=== PATIENT | male | born 1965 | race Caucasian/White ===

== ENCOUNTER 2024-04-25 18:36 | Emergency (ER) | payer OTHER ==
[~2024-04-25] VITALS: Ht 172.7 cm; Wt 90.8 kg
[2024-04-25 20:30] VITALS: BP 144/83; PULSE 74; RESP 20; TEMP 98.6; O2SAT 97
[2024-04-25] MEDS: KETOROLAC TROMETH 60MG/2ML VIAL IM ONE (21:55)
[2024-04-25] MEDS ORDERED: DOXY100C4 PO (22:34)
== END 2024-04-25 23:18 | disposition home or self-care (01) ==
LOC: ER 18:36
DX: S60.562D Insect bite (nonvenomous) of left hand, subsequent encounter (principal); Z88.1 Allergy status to other antibiotic agents; W57.XXXD Bitten or stung by nonvenomous insect and other nonvenomous arthropods, subsequent encounter
CPT/HCPCS: 73130; 96372; 99283; J1885

== ENCOUNTER 2024-04-27 10:17 | Inpatient (IN) | payer OTHER ==
[~2024-04-27] VITALS: Ht 172.7 cm; Wt 91.0 kg
[~2024-04-27 10:17] MED LIST: BACDST PO; DOXY100C4 PO; DOXY1CAP57 PO; FLUO0.054 TOP; LOSA100T33 PO; MUPI2OIN2 TOP; TACR0.1O7 TOP
[2024-04-27 11:50] LABS: Basophils # (auto) 0 10 ^3/uL (0-0.2); Basophils % (auto) 0.4 % (0.0-2.0); Eosinophils # (auto) 0.1 10 ^3/uL (0-0.8); Hematocrit 43.1 % (41.0-53.0); Hemoglobin 14.9 g/dL (13.5-17.5); Lymphocytes # (auto) 1.3 10 ^3/uL (0.4-5.4); Lymphocytes % (auto) 16.4 % (10.0-50.0); Mean Corpuscular Hemoglobin 32.3 pg (28.0-32.0); Mean Corpuscular Hgb Conc. 34.6 g/dL (32.0-36.0); Mean Corpuscular Volume 93.4 fL (80.0-100.0); Monocytes # (auto) 0.7 10 ^3/uL (0-1.3); Monocytes % (auto) 8.3 % (0.0-12.0); Neutrophils # (auto) 5.9 10 ^3/uL (1.6-8.6); Neutrophils % (auto) 73.9 % (37.0-80.0); Nucleated Red Blood Cells % 0.1 %; Platelet Count (auto) 205 10^3/uL (140-450); Red Blood Cells 4.61 10^6/uL (4.5-5.90); Red Cell Distribution Width 13.6 % (11.8-14.3)
[2024-04-27 12:06] LABS: Alanine Aminotransferase 45 U/L (7-40); Albumin 4.6 g/dL (3.2-4.8); Alkaline Phosphatase 90 U/L (46-116); Anion Gap 6 (5-15); Aspartate Aminotransferase 24 U/L (13-40); BUN/Creatinine Ratio 14.6 (10.0-20.0); Bilirubin, Total 0.7 mg/dL (0.2-1.0); Blood Urea Nitrogen 14 mg/dL (9-23); Carbon Dioxide 25 mmol/L (20-30); Chloride 107 mmol/L (98-107); Glucose 93 mg/dL (74-106); Potassium 4.4 mmol/L (3.5-5.1); Sodium 138 mmol/L (136-145); Total Protein 7.2 g/dL (5.7-8.2)
[2024-04-27 12:15] LABS: CRP High Sensitivity 2.92 mg/dL (<1.0)
[2024-04-27 12:27] LABS: Erythrocyte Sedimentation Rate 14 mm/hr (0-20)
[2024-04-27] MEDS: PIPERACILLIN-TAZOB 3.375GM 100 ML IV ONE (13:57)
[2024-04-27] MEDS ORDERED: DOCUSATE SOD 100 MG CAP PO PRN (14:45)
[2024-04-27] MEDS ORDERED: NITROGLYCERIN 0.4 MG SL TAB SL PRN (14:45)
[2024-04-27] MEDS ORDERED: ONDANSETRON HCL 4 MG/2 ML VIAL IV PRN (14:45)
[2024-04-27] MEDS ORDERED: MORPHINE SULFATE INJ 2 MG/ml SYRG IV PRN (14:45)
[2024-04-27] MEDS ORDERED: VANCOMYCIN PER PHARMACY 0 MG IV SCH (14:45)
[2024-04-27] MEDS: TETANUS-DIPTH-ACEL PERTUSSIS 0.5ML SYR Tdap IM ONE (16:09)
[2024-04-27] MEDS: SODIUM CHLORIDE 0.9% 1,000 ML IV SCH (16:10)
[2024-04-27] MEDS: VANCOMYCIN 1GM/200ML 200 ML IV SCH (16:23)
[2024-04-27 18:43] VITALS: BP 143/74; PULSE 70; RESP 20; TEMP 97.9; O2SAT 96
[2024-04-27] MEDS ORDERED: AMLO1TAB23 PO (19:03)
[2024-04-27 20:00] VITALS: RESP 16
[2024-04-27] MEDS: ACETAMINOPHEN 325 MG TAB PO PRN (20:05)
[2024-04-27] MEDS: VANCOMYCIN 1GM/200ML 200 ML IV ONE (20:41)
[2024-04-27 21:00] VITALS: BP 130/64; PULSE 67; RESP 20; TEMP 97.9; O2SAT 95
[2024-04-28] VITALS (9 sets, daily range): BP systolic 117–136; BP diastolic 59–83; PULSE 52–72; RESP 14–20; TEMP 97.6–98.3; O2SAT 91–98
[2024-04-28] MEDS: VANCOMYCIN 1.25GM/250ML 250 ML IV SCH (06:26)
[2024-04-28 06:42] LABS: Alanine Aminotransferase 39 U/L (7-40); Albumin 4.1 g/dL (3.2-4.8); Alkaline Phosphatase 82 U/L (46-116); Anion Gap 5 (5-15); Aspartate Aminotransferase 22 U/L (13-40); BUN/Creatinine Ratio 15.4 (10.0-20.0); Bilirubin, Total 0.7 mg/dL (0.2-1.0); Blood Urea Nitrogen 12 mg/dL (9-23); Calcium 9.3 mg/dL (8.7-10.4); Carbon Dioxide 26 mmol/L (20-30); Chloride 108 mmol/L (98-107); Glucose 111 mg/dL (74-106); Potassium 4.2 mmol/L (3.5-5.1); Sodium 139 mmol/L (136-145); Total Protein 6.4 g/dL (5.7-8.2)
[2024-04-28 06:52] LABS: Basophils # (auto) 0 10 ^3/uL (0-0.2); Basophils % (auto) 0.4 % (0.0-2.0); Eosinophils # (auto) 0.1 10 ^3/uL (0-0.8); Hematocrit 41.1 % (41.0-53.0); Hemoglobin 13.9 g/dL (13.5-17.5); Lymphocytes # (auto) 1.2 10 ^3/uL (0.4-5.4); Lymphocytes % (auto) 15.9 % (10.0-50.0); Mean Corpuscular Hemoglobin 31.5 pg (28.0-32.0); Mean Corpuscular Hgb Conc. 33.8 g/dL (32.0-36.0); Mean Corpuscular Volume 93.1 fL (80.0-100.0); Monocytes # (auto) 0.7 10 ^3/uL (0-1.3); Monocytes % (auto) 9.3 % (0.0-12.0); Neutrophils # (auto) 5.7 10 ^3/uL (1.6-8.6); Neutrophils % (auto) 73.4 % (37.0-80.0); Platelet Count (auto) 188 10^3/uL (140-450); Red Blood Cells 4.42 10^6/uL (4.5-5.90); Red Cell Distribution Width 13.5 % (11.8-14.3); White Blood Cell 7.8 10^3/uL (4.4-10.8)
[2024-04-28] MEDS: PIPERACILLIN-TAZOB 3.375GM 100 ML IV SCH (10:39)
[2024-04-28] MEDS: SODIUM CHLORIDE 0.9% 1,000 ML IV SCH (11:30)
[2024-04-28] MEDS ORDERED: ONDANSETRON HCL 4 MG/2 ML VIAL ONE (15:54)
[2024-04-28] MEDS ORDERED: PROPOFOL 10 MG/ML 20 ML IV ONE ×2 (15:54→16:06)
[2024-04-28] MEDS ORDERED: LIDOCAINE 1% INJ PF 5ML AMP ONE (15:54)
[2024-04-28] MEDS ORDERED: DexAMETHasone SOD PHOS 10MG/1ML VIAL INJ ONE (15:54)
[2024-04-28] MEDS ORDERED: KETOROLAC TROMETH 30 MG/ML 1ML VIAL ONE (15:54)
[2024-04-28] MEDS ORDERED: GLYCOPYRROLATE 0.2 MG/ML 1ML VIAL ONE (15:54)
[2024-04-28] MEDS ORDERED: KETAMINE 50mg/ML 10ml Vial 10 ML ONE (15:55)
[2024-04-28] MEDS ORDERED: KETAMINE 50mg/ML 1ml syringe ONE (15:55)
[2024-04-28] MEDS ORDERED: LIDOCAINE 1% HCL (LOCAL ANESTH.) INJ 20ML MDV ONE (16:01)
[2024-04-28] MEDS: BUPIVACAINE 0.25% INJ 50ML VIAL ONE (16:07)
[2024-04-28] MEDS: VANCOMYCIN HCL 1000 MG VL ONE (16:20)
[2024-04-28] MEDS ORDERED: ONDANSETRON HCL 4 MG/2 ML VIAL IV PRN (16:45)
[2024-04-28] MEDS ORDERED: NALOXONE HCL 0.4 MG/ML VIAL IV PRN (16:45)
[2024-04-28] MEDS ORDERED: HYDROmorphone HCL 2 MG/ML VL/or syr IV PRN (16:45)
[2024-04-28] MEDS ORDERED: hydrALAZINE HCL 20 MG/ML VL IV PRN (16:45)
[2024-04-28] MEDS ORDERED: FLUMAZENIL 0.1 MG/ML INJ 10ML MDV IV PRN (16:45)
[2024-04-28] MEDS ORDERED: ePHEDrine SULFATE 50 MG/ML AMP IV PRN (16:45)
[2024-04-28] MEDS ORDERED: fentaNYL CITRATE 100 MCG/2 ML VL ONE (16:50)
[2024-04-28] MEDS ORDERED: oxyCODONE ER 10 MG TAB PO ONE (16:50)
[2024-04-28] MEDS: fentaNYL CITRATE 100 MCG/2 ML VL IV PRN (16:51)
[2024-04-28] MEDS: oxyCODONE HCL 5MG TAB PO PRN (16:58)
[2024-04-29] VITALS (7 sets, daily range): BP systolic 110–144; BP diastolic 61–80; PULSE 64–85; RESP 16–21; TEMP 97.4–98.9; O2SAT 94–100
[2024-04-29 06:02] LABS: Anion Gap 6 (5-15); Calcium 9.7 mg/dL (8.7-10.4); Carbon Dioxide 25 mmol/L (20-30); Chloride 107 mmol/L (98-107); Potassium 4.5 mmol/L (3.5-5.1); Sodium 138 mmol/L (136-145)
[2024-04-29 06:08] LABS: BUN/Creatinine Ratio 19.3 (10.0-20.0); Blood Urea Nitrogen 16 mg/dL (9-23); Glucose 141 mg/dL (74-106)
[2024-04-29 06:11] LABS: Basophils # (auto) 0 10 ^3/uL (0-0.2); Basophils % (auto) 0.1 % (0.0-2.0); Eosinophils # (auto) 0 10 ^3/uL (0-0.8); Hematocrit 42.3 % (41.0-53.0); Hemoglobin 14.7 g/dL (13.5-17.5); Lymphocytes # (auto) 0.6 10 ^3/uL (0.4-5.4); Lymphocytes % (auto) 4.4 % (10.0-50.0); Mean Corpuscular Hemoglobin 32.4 pg (28.0-32.0); Mean Corpuscular Hgb Conc. 34.8 g/dL (32.0-36.0); Mean Corpuscular Volume 93.1 fL (80.0-100.0); Monocytes # (auto) 0.4 10 ^3/uL (0-1.3); Monocytes % (auto) 3.2 % (0.0-12.0); Neutrophils # (auto) 12.2 10 ^3/uL (1.6-8.6); Neutrophils % (auto) 92.3 % (37.0-80.0); Platelet Count (auto) 215 10^3/uL (140-450); Red Blood Cells 4.54 10^6/uL (4.5-5.90); Red Cell Distribution Width 12.9 % (11.8-14.3); White Blood Cell 13.2 10^3/uL (4.4-10.8)
[2024-04-29 10:03] LABS: Hepatitis B Surface Antigen Negative (Negative)
[2024-04-29 10:24] LABS: Hepatitis C Antibody Negative (Negative)
[2024-04-29] MEDS: levoFLOXacin 500MG 100 ML IV SCH (14:29)
[2024-04-29] MEDS: diphenhdrAMINE HCL 50 MG/1 ML VL IM ONE (16:30)
[2024-04-29] MEDS ORDERED: PIPERACILLIN-TAZOB 3.375GM 100 ML IV SCH (18:00)
[2024-04-29] MEDS: PIPERACILLIN-TAZOB 3.375GM 100 ML IV SCH (20:55)
[2024-04-30] VITALS (8 sets, daily range): BP systolic 120–154; BP diastolic 69–84; PULSE 53–86; RESP 16–21; TEMP 97.4–98.2; O2SAT 92–98
[2024-04-30] MEDS: PIPERACILLIN-TAZOB 3.375GM 100 ML IV SCH (03:13)
[2024-04-30 11:15] LABS: Basophils # (auto) 0 10 ^3/uL (0-0.2); Basophils % (auto) 0.3 % (0.0-2.0); Eosinophils # (auto) 0.1 10 ^3/uL (0-0.8); Eosinophils % (auto) 0.9 % (0.0-7.0); Hematocrit 39.9 % (41.0-53.0); Hemoglobin 13.9 g/dL (13.5-17.5); Lymphocytes # (auto) 1.9 10 ^3/uL (0.4-5.4); Lymphocytes % (auto) 22.2 % (10.0-50.0); Mean Corpuscular Hemoglobin 32.6 pg (28.0-32.0); Mean Corpuscular Hgb Conc. 34.9 g/dL (32.0-36.0); Mean Corpuscular Volume 93.4 fL (80.0-100.0); Monocytes # (auto) 0.7 10 ^3/uL (0-1.3); Monocytes % (auto) 8.4 % (0.0-12.0); Neutrophils # (auto) 5.7 10 ^3/uL (1.6-8.6); Neutrophils % (auto) 68.2 % (37.0-80.0); Nucleated Red Blood Cells % 0.1 %; Platelet Count (auto) 188 10^3/uL (140-450); Red Blood Cells 4.27 10^6/uL (4.5-5.90); Red Cell Distribution Width 13.1 % (11.8-14.3); White Blood Cell 8.4 10^3/uL (4.4-10.8)
[2024-04-30 11:56] LABS: Erythrocyte Sedimentation Rate 16 mm/hr (0-20)
[2024-04-30 14:09] LABS: Urine Bacteria None Seen /hpf (None Seen)
[2024-04-30 14:28] LABS: Urine Blood Negative /uL (Negative); Urine Clarity Clear (Clear); Urine Color Light-Yellow (Yellow); Urine Protein, UAD Negative (Negative); Urine Specific Gravity 1.024 (1.001-1.035); Urine Urobilinogen Normal (Negative); Urine WBC <1 /hpf (0 - 3)
[2024-04-30 14:43] LABS: Amphetamine Screen, Urine Neg (NEGATIVE)
[2024-04-30 14:44] LABS: Barbiturate Scree,Urine Neg (NEGATIVE); Benzodiazephine Screen, Urine Neg (NEGATIVE); Cannabinoid Screen, Urine Neg (NEGATIVE); Cocaine Screen, Urine Neg (NEGATIVE); Opiate Scree,Urine Neg (NEGATIVE); Phencyclidine Screen, Urine Neg (NEGATIVE)
[2024-04-30] MEDS: AMPICILLIN & SULBACTAM SODIUM 3 GM in SODIUM CHL 0.9% 100 ML IV SCH (16:24)
[2024-04-30] MEDS ORDERED: PIPERACILLIN-TAZOB 3.375GM 100 ML IV SCH (17:00)
[2024-04-30] MEDS ORDERED: VANCOMYCIN PER PHARMACY 0 MG IV SCH (20:45)
[2024-04-30] MEDS: VANCOMYCIN 1.25GM/250ML 250 ML IV SCH (22:03)
[2024-05-01] MEDS: AMPICILLIN & SULBACTAM SODIUM 3 GM in SODIUM CHL 0.9% 100 ML IV SCH (01:58)
[2024-05-01 05:00] VITALS: BP 119/77; PULSE 81; RESP 16; TEMP 98.1; O2SAT 95
[2024-05-01 06:22] LABS: Calcium 9.1 mg/dL (8.7-10.4)
[2024-05-01 06:27] LABS: Albumin 3.8 g/dL (3.2-4.8); BUN/Creatinine Ratio 17.9 (10.0-20.0)
[2024-05-01 06:29] LABS: Phosphorus 3.8 mg/dL (2.4-5.1)
[2024-05-01 09:00] VITALS: BP 139/75; PULSE 60; RESP 20; TEMP 97.8; O2SAT 96
[2024-05-01] MEDS: amLODIPine BESYLATE 5 MG TAB PO ONE (10:40)
[2024-05-01 13:00] VITALS: BP 152/76; PULSE 56; RESP 20; TEMP 97.5; O2SAT 96
[2024-05-01] MEDS: AMOXICILLIN/CLAVUL 875 MG TAB PO ONE (14:37)
[2024-05-01 15:40] VITALS: BP 139/75; TEMP 36.4
[2024-05-01] MEDS ORDERED: DICL500C76 PO (16:11)
[2024-05-01] MEDS ORDERED: AMOXICILLIN/CLAVUL 875 MG TAB PO SCH (22:00)
[2024-05-02] MEDS ORDERED: amLODIPine BESYLATE 5 MG TAB PO SCH (10:00)
== END 2024-05-01 16:47 | disposition home or self-care (01) | DRG 580 ==
LOC: ER 10:17 → OVERFLOW 14:41 → EAST 18:33
PROVIDERS: ADMIT Internal Medicine; ATTEND Internal Medicine
PROC: 0JBK0ZZ Excision of Left Hand Subcutaneous Tissue and Fascia, Open Approach (ICD-10-PCS; principal; 2024-04-28 15:54)
DX: L02.512 Cutaneous abscess of left hand (principal); L03.114 Cellulitis of left upper limb; I10 Essential (primary) hypertension; E66.9 Obesity, unspecified; Z90.49 Acquired absence of other specified parts of digestive tract; Z80.42 Family history of malignant neoplasm of prostate; Z88.1 Allergy status to other antibiotic agents; Z68.30 Body mass index [BMI] 30.0-30.9, adult
CPT/HCPCS: 36415; 73200; 73201; 80048; 80053; 80069; 80202; 80307; 81001; 83036; 83605; 85025; 85652; 86141; 86803; 87040; 87070; 87075; 87076; 87077; 87186; 87205; 87340; 90715; 96365; G0378; J1100; J1885; J1956; J2001; J2405; J2543; J2704; J3490